=== PATIENT | female | born 1980 | race Caucasian/White ===

== ENCOUNTER 2019-09-13 12:15 | Emergency (ER) | payer MEDICAID ==
[2019-09-13 13:13] VITALS: BP 133/91
== END 2019-09-13 13:45 | disposition left against medical advice (07) ==
LOC: ER 12:15
DX: Z53.21 Procedure and treatment not carried out due to patient leaving prior to being seen by health care provider (principal)

== ENCOUNTER 2019-11-08 13:31 | Emergency (ER) | payer SELFPAY ==
[2019-11-08 13:40] VITALS: BP 127/93
[2019-11-08] MEDS ORDERED: NORMAL SALINE 1000 ML 1,000 ML IV ONE (13:43)
--- NOTE | 2019-11-08 13:44 | ER Document Report ---
ED GI/ - General Chief Complaint: Abdominal Pain Stated Complaint: ABDOMINAL PAIN/FEVER Time Seen by Provider: 11/08/19 13:42 Primary Care Provider: [facility] [Provider Group] - Follow up as needed Notes: Patient is a 39-year-old female who presents to the emergency department with a chief complaint of lower abdominal pain. Patient states that she has had pain in her right lower quadrant for the past 10 days. Patient reports that she also had dyspareunia while she was having sex with her boyfriend. Patient states that she has an IUD in that was supposed to be taken out 3 years ago. Patient s tates that it has been in for the past 13 years. Patient states that she is currently bleeding right now. Cough, shortness of breath, difficulty breathing, or any other symptoms at this time. TRAVEL OUTSIDE OF THE [place] IN LAST 30 DAYS: No - Related Data Allergies/Adverse Reactions: No Known Allergies Allergy (Verified 11/26/14 12:10) Past Medical History - General Information source: Patient - Social History Smoking Status: Unknown if Ever Smoked Frequency of alcohol use: None Drug Abuse: None Family History: Reviewed & Not Pertinent Patient has suicidal ideation: No Patient has homicidal ideation: No Neurological Medical History: Reports: Hx Migraine Past Surgical History: Reports: Hx Gynecologic Surgery - endometriosis Review of Systems - Review of Systems Notes: REVIEW OF SYSTEMS: CONSTITUTIONAL : Denies recent illness. Denies recent unintentional weight loss. See. HPI. EENT: Denies eye, ear, throat, or mouth pain, discharge, or symptoms. Denies nasal or sinus congestion. CARDIOVASCULAR: Denies chest pain. RESPIRATORY: Denies shortness of breath, cough, congestion, difficulty breathing, or wheezing. GASTROINTESTINAL: See HPI. GENITOURINARY: See HPI. FEMALE GENITOURINARY: See HPI. MUSCULOSKELETAL: Denies neck and back pain. Denies joint pain or swelling. SKIN: Denies rash, itchiness, or lesions HEMATOLOGIC : Denies easy bruising or bleeding. LYMPHATIC: Denies swollen, painful, enlarged glands. NEUROLOGICAL: Denies no numbness or tingling denies weakness. Denies headache. Denies altered mental status. Denies alteration in speech. PSYCHIATRIC: Denies stress, anxiety, alteration in sleep patterns, or depression. All other systems reviewed and negative. Physical Exam - Vital signs Vitals: Temp Pulse Resp BP Pulse Ox 98.1 F 122 H 16 127/93 H 98 11/08/19 13:37 11/08/19 13:37 11/08/19 13:37 11/08/19 13:37 11/08/19 13:37 - Notes Notes: PHYSICAL EXAMINATION: GENERAL: Appears well, healthy, well-nourished, no acute distress. HEAD: Normocephalic, atraumatic. EYES: PERRL, conjunctiva normal, all extraocular movements intact, sclera nonicteric ENT: Moist mucous membranes. NECK: Supple, no noticeable swelling, redness, rash. Normal range of motion. LUNGS: Equal breath sounds bilaterally and clear to auscultation. No wheezes rales or rhonchi. CARDIOVASCULAR: S1-S2, regular rate, regular rhythm. Radial pulses 2+, normal. ABDOMEN: Normoactive bowel sounds. Soft, nontender, no guarding, no rebound tenderness, and no masses palpated. EXTREMITIES: Normal strength and range of motion, no pitting or edema. No cyanosis. NEUROLOGICAL: Moves all extremities upon command. Strength 5/5 in all extremities. PSYCH: Normal mood, normal affect. SKIN: Warm, dry. No rash, lesions, ulcerations noted. Normal skin turgor. 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 Course - Re-evaluation Re-evalutation: 11/08/19 14:15 Pelvic exam done with MIRTA Palacios at bedside. Patient had a small amount of discharge noted. Wet [place] and gonorrhea and chlamydia will be sent. 11/08/19 16:17 Patient's hematology shows a mild anemia. No leukocytosis noted. Urinalysis is unremarkable. There is a small amount of blood in her urine, but she is c urrently on her menstrual cycle. hCG is negative. Gonorrhea and Chlamydia are negative. Awaiting transvaginal ultrasound. I have a very low suspicion for appendicitis, as the patient is able to jump and does not appear toxic. 11/08/19 16:43 The patient has a 7 x 7 x 7 cm uterine fibroid. Her IUD is in place. Vascular flow is normal to both ovaries with no torsion noted. I discussed these fi ndings with Dr. Dinh, the PATIENT ACCESS ASSOCIATE on-call. She states that she recommends the patient follow-up outpatient to have her IUD removed and uterine fibroid assessed. Follow-up precautions were given. Verbal discharge instructions were given to the patient. They verbalized understanding. They are stable for discharge. - Vital Signs Vital signs: Temp Pulse Resp BP Pulse Ox 98.1 F 122 H 16 127/93 H 98 11/08/19 13:37 11/08/19 13:37 11/08/19 13:37 11/08/19 13:37 11/08/19 13:37 - Laboratory Result Diagrams: 11/08/19 14:22 11/08/19 14:20 Laboratory results interpreted by me: 11/08/19 11/08/19 14:20 14:22 Hgb 10.2 L Hct 32.0 L MCV 70 L MCH 22.3 L RDW 19.3 H Plt Count 621 H Urine Blood SMALL H Discharge - Discharge Clinical Impression: Lower abdominal pain Uterine fibroid Qualifiers: Uterine leiomyoma location: unspecified location Qualified Code(s): D25.9 - Leiomyoma of uterus, unspecified Condition: Stable Disposition: HOME, SELF-CARE Instructions: Toradol Injection ([facility]) Additional Instructions: You were seen today in the emergency department for abdominal pain. You have a uterine fibroid. Your IUD is also in place, but it has been in place for too long. Please follow-up with [facility]ESS [facility] in regards to this visit. Call them tomorrow to make an appointment. They take patients without insurance. Take ibuprofen for pain relief. Prescriptions: Ibuprofen [Ibu] 600 mg PO Q6HP PRN #30 tablet PRN Reason: Referrals: [facility] [Provider Group] - Follow up as needed
[2019-11-08 14:40] LABS: ABSOLUTE EOSINOPHILS # (AUTO) 0.1 10^3/uL (0.0-0.6); ABSOLUTE LYMPHOCYTES (AUTO) 1.4 10^3/uL (0.5-4.7); ABSOLUTE MONOCYTES (AUTO) 0.4 10^3/uL (0.1-1.4); BASOPHILS % (AUTO) 0.4 % (0-2); EOSINOPHILS % (AUTO) 1.7 % (0-6); HEMOGLOBIN 10.2 g/dL (12.0-15.5); LYMPHOCYTES % (AUTO) 17.4 % (13-45); MEAN CORPUSCULAR HEMOGLOBIN 22.3 pg (27.0-33.4); MEAN CORPUSCULAR VOLUME 70 fl (80-97); MONOCYTES % (AUTO) 5.2 % (3-13); PLATELET COUNT 621 10^3/uL (150-450); RED BLOOD COUNT 4.59 10^6/uL (3.72-5.28); RED CELL DISTRIBUTION WIDTH 19.3 % (11.5-14.0); SEGMENTED NEUTROPHILS % (AUTO) 75.3 % (42-78); TOTAL CELLS COUNTED % (AUTO) 100 %; WHITE BLOOD COUNT 7.9 10^3/uL (4.0-10.5)
[2019-11-08 14:43] LABS: EPITHELIALS (WET MOUNT) 3+ EPITHELIALS SEEN; T.VAGINALIS (WET MOUNT) NO TRICHOMONAS SEEN; WBCS (WET MOUNT) FEW WBCS SEEN; YEAST (WET MOUNT) NO YEAST SEEN
[2019-11-08 14:44] LABS: APPEARANCE,URINE CLEAR; BILIRUBIN,URINE NEGATIVE (NEGATIVE); COLOR,URINE YELLOW; GLUCOSE, URINE NEGATIVE (NEGATIVE); KETONES,URINE NEGATIVE (NEGATIVE); LEUKOCYTE ESTERASE,URINE NEGATIVE (NEGATIVE); NITRITE,URINE NEGATIVE (NEGATIVE); PROTEIN,URINE NEGATIVE (NEGATIVE); URINE SPECIFIC GRAVITY 1.012; UROBILINOGEN,URINE NEGATIVE mg/dL (<2.0)
[2019-11-08 15:03] LABS: ALBUMIN 4.4 g/dL (3.5-5.0); ALKALINE PHOSPHATASE 90 U/L (38-126); ANION GAP 9 (5-19); ASPARTATE AMINO TRANSFERASE 19 U/L (14-36); BILIRUBIN,DIRECT 0.2 mg/dL (0.0-0.4); BILIRUBIN,TOTAL 0.3 mg/dL (0.2-1.3); BLOOD UREA NITROGEN 9 mg/dL (7-20); CALCIUM 9.8 mg/dL (8.4-10.2); CARBON DIOXIDE 26 mmol/L (22-30); CHLORIDE 104 mmol/L (98-107); GLUCOSE 87 mg/dL (75-110); POTASSIUM 4.3 mmol/L (3.6-5.0)
[2019-11-08 16:11] LABS: CHLAM PCR NOT DETECTED (NOT DETECT)
[2019-11-08] MEDS ORDERED: KETOROLAC TROMETHAMINE INJ/PF 30 MG/1 ML SDV IV ONE (16:11)
[2019-11-08] MEDS ORDERED: ACETAMINOPHEN 325 MG TABLET PO ONE (16:11)
--- NOTE | 2019-11-08 16:27 | RADIOLOGY REPORT (SQ) ---
EXAM DESCRIPTION: U/S NON OB PEL W/DOPPLER IMAGES COMPLETED DATE/TIME: 11/08/2019 4:17 pm REASON FOR STUDY: right pelvic pain COMPARISON: None. TECHNIQUE: Dynamic and static grayscale images acquired of the pelvis via transabdominal approach an d recorded on PACS. Additional selected color Doppler and spectral images recorded. LIMITATIONS: None. FINDINGS: UTERUS: Uterus is slightly heterogeneous in echotexture most likely secondary to fibroids. The largest measures 7.3 x 7 x 7.0 cm. ENDOMETRIAL STRIPE: IUD is in place. CERVIX: There are nabothian cysts. RIGHT OVARY AND DOPPLER: Normal size. No worrisome masses. Normal arterial vascular flow without evid ence for torsion. Simple 1.2 x 1.4 x 1.0 cm cyst. LEFT OVARY AND DOPPLER: Normal size. No worrisome masses. Normal arterial vascular flow without evide nce for torsion. FREE FLUID: None noted. OTHER: No other significant finding. MEASUREMENTS: UTERUS: 9.3 x 7.6 x 5.8 cm. RIGHT OVARY: 2.6 x 2.0 x 2.4 cm. LEFT OVARY: 2.4 x 1.8 x 1.8 cm. IMPRESSION: Uterine fibroid measured at 7.3 x 7.0 x 7.0 cm. IUD is in place. TECHNICAL DOCUMENTATION: JOB ID: [id number] [employer]- All Rights Reserved Rev-12/17 Reading location - IP/workstation name: [email or web address]
== END 2019-11-08 17:35 | disposition home or self-care (01) ==
LOC: ER 13:31
DX: D25.9 Leiomyoma of uterus, unspecified (principal); R10.30 Lower abdominal pain, unspecified; Z97.5 Presence of (intrauterine) contraceptive device
CPT/HCPCS: 99284; 96361; 96374; 36415; 87210; 85025; 81025; 80053; 81001; 87491; 87591; 76856; 93976; J1885; J7030

== ENCOUNTER 2019-12-09 20:20 | Emergency (ER) | payer SELFPAY ==
[2019-12-09 20:39] VITALS: BP 130/96
--- NOTE | 2019-12-09 20:52 | ER Document Report ---
ED Medical Screen (RME) - General Stated Complaint: ELBOW PAIN Time Seen by Provider: 12/09/19 20:49 Mode of Arrival: Ambulatory Information source: Patient Notes: 39-year-old female presents emergency department with complaints of bilateral elbow pain. Reports 2 days ago she fell on her elbows. She reports both elbows are very tender to touch. No obvious deformity some slight ecchymosis noted. No erythema no warmth no swelling. I have greeted and performed a rapid initial assessment of this patient. A comprehensive ED assessment and evaluation of the patient, analysis of test results and completion of the medical decision making process will be conducted by additional ED providers. TRAVEL OUTSIDE OF THE [place] IN LAST 30 DAYS: No - Related Data Allergies/Adverse Reactions: No Known Allergies Allergy (Verified 11/26/14 12:10) Past Medical History Neurological Medical History: Reports: Hx Migraine Past Surgical History: Reports: Hx Gynecologic Surgery - endometriosis Physical Exam - Vital signs Vitals: Temp Pulse Resp BP Pulse Ox 97.7 F 95 20 130/96 H 98 12/09/19 20:37 12/09/19 20:37 12/09/19 20:37 12/09/19 20:37 12/09/19 20:37 Course - Vital Signs Vital signs: Temp Pulse Resp BP Pulse Ox 97.7 F 95 20 130/96 H 98 12/09/19 20:37 12/09/19 20:37 12/09/19 20:37 12/09/19 20:37 12/09/19 20:37
--- NOTE | 2019-12-09 21:23 | RADIOLOGY REPORT (SQ) ---
CLINICAL INDICATION: bilateral elbow pain post fall. . TECHNIQUE: 4 view(s) were obtained of the left elbow. COMPARISON: None. FINDINGS: No acute displaced fracture is identified of the elbow. Alignment appears anatomic. Joint spaces are within normal limits for age. No significant joint effusion. Surrounding soft tissues are unremarkable. IMPRESSION: No evidence of acute displaced fracture of the elbow.
--- NOTE | 2019-12-09 21:24 | RADIOLOGY REPORT (SQ) ---
CLINICAL INDICATION: bilateral elbow pain post fall. . TECHNIQUE: 4 view(s) were obtained of the right elbow. COMPARISON: None. FINDINGS: No acute displaced fracture is identified of the elbow. Alignment appears anatomic. Joint spaces are within normal limits for age. No significant joint effusion. Surrounding soft tissues are unremarkable. IMPRESSION: No evidence of acute displaced fracture of the elbow.
--- NOTE | 2019-12-09 22:06 | ER Document Report ---
HPI - HPI Patient complains to provider of: Bilateral elbow pain Time Seen by Provider: 12/09/19 22:25 Onset: Other - 3 days Onset/Duration: Persistent Quality of pain: Achy Pain Level: 4 Context: Patient states she was walking down steps, fell hitting both elbows on the handrails. Patient complains of persistent elbow pain right worse than left. Exacerbated by: Movement Relieved by: Denies Similar symptoms previously: No Recently seen / treated by doctor: No - ROS ROS below otherwise negative: Yes Systems Reviewed and Negative: Yes All other systems reviewed and negative - NEURO Neurology: DENIES: Weakness - GASTROINTESTINAL Gastrointestinal: DENIES: Nausea - REPRODUCTIVE Reproductive: DENIES: : - MUSCULOSKELETAL Musculoskeletal: REPORTS: Extremity pain. DENIES: Swelling - DERM Skin Color: Normal Skin Problems: None Past Medical History - General Information source: Patient - Social History Smoking Status: Current Every Day Smoker Frequency of alcohol use: None Drug Abuse: None Occupation: None Lives with: Family Family History: Reviewed & Not Pertinent Patient has homicidal ideation: No Neurological Medical History: Reports: Hx Migraine Musculoskeletal Medical History: Reports Hx Arthritis Past Surgical History: Reports: Hx Gynecologic Surgery - endometriosis, Hx Oral Surgery, Hx Orthopedic Surgery Vertical Provider Document - CONSTITUTIONAL Agree With Documented VS: Yes Exam Limitations: No Limitations General Appearance: WD/WN, No Apparent Distress - INFECTION CONTROL TRAVEL OUTSIDE OF THE [place] IN LAST 30 DAYS: No - HEENT HEENT: Atraumatic, Normocephalic - NECK Neck: Normal Inspection, Supple. negative: Lymphadenopathy-Left, Lymphadenopathy-Right - RESPIRATORY Respiratory: Breath Sounds Normal, No Respiratory Distress - CARDIOVASCULAR Cardiovascular: Regular Rate, Regular Rhythm Pulses: Normal: Radial - BACK Back: Normal Inspection - MUSCULOSKELETAL/EXTREMETIES Musculoskeletal/Extremeties: MAEW, FROM, Tender - Tenderness over right olecranon and lateral epicondyle, no joint effusion, mild ecchymosis Tenderness over left olecranon, mild ecchymosis, no joint effusion, No Edema, Eccymosis - NEURO Level of Consciousness: Awake, Alert, Appropriate Motor/Sensory: No Motor Deficit - DERM Integumentary: Warm, Dry, No Rash Course - Re-evaluation Re-evalutation: 12/09/19 22:42 X-ray report reviewed, no acute fracture. Patient with full range of motion. Patient with only mild tenderness with palpation. Patient states she just want to be certain she did not have any fractures. - Vital Signs Vital signs: Temp Pulse Resp BP Pulse Ox 97.7 F 95 20 130/96 H 98 12/09/19 20:50 12/09/19 20:37 12/09/19 20:37 12/09/19 20:37 12/09/19 20:37 - Diagnostic Test Radiology reviewed: Image reviewed, Reports reviewed Discharge - Discharge Clinical Impression: Bilateral elbow joint pain, Ecchymosis Condition: Stable Disposition: HOME, SELF-CARE Instructions: Acetaminophen, Contusion ([facility]), Ice & Elevation ([facility]) Additional Instructions: Return immediately for any new or worsening symptoms Followup with your primary care provider, call tomorrow to make a followup appointment Follow-up with orthopedics for any persistent pain or problems Referrals: [facility] [Provider Group] - Follow up as needed
[2019-12-09] MEDS ORDERED: ACETAMINOPHEN 325 MG TABLET PO ONE (22:38)
== END 2019-12-09 22:50 | disposition home or self-care (01) ==
LOC: ER 20:20
DX: S50.02XA Contusion of left elbow, initial encounter (principal); M25.521 Pain in right elbow; M25.522 Pain in left elbow; W10.9XXA Fall (on) (from) unspecified stairs and steps, initial encounter; F17.200 Nicotine dependence, unspecified, uncomplicated
CPT/HCPCS: 99283